=== PATIENT | female | born 1985 | race Hispanic/Latino ===

== ENCOUNTER 2017-10-19 17:39 | Inpatient (IN) | payer OTHER ==
[~2017-10-19] VITALS: Ht 149.9 cm; Wt 77.1 kg
[2017-10-19] MEDS ORDERED: LACTATED RINGERS 1000ML 1,000 ML IV PRN (18:09)
[2017-10-19 18:14] LABS: APPEARANCE,URINE Cloudy (CLEAR); BILIRUBIN,URINE Negative (NEGATIVE); COLOR,URINE Yellow (YELLOW); GLUCOSE, URINE (UA) Negative (NEGATIVE); KETONES,URINE Trace mg/dL (NEGATIVE); LEUKOCYTE ESTERASE ,URINE Moderate (NEGATIVE); NITRATE,URINE Negative (NEGATIVE); OCCULT BLOOD,URINE Moderate (NEGATIVE); PH,URINE 7.5 (5.0-8.0); PROTEIN,URINE Negative (NEGATIVE)
[2017-10-19] MEDS ORDERED: AMPICILLIN 2GM+NS 100ML 100 ML IV SCH (18:15)
[2017-10-19] MEDS: AMPICILLIN 1GM+NS 50ML 50 ML IV SCH ×2 (18:15→22:43)
[2017-10-19 18:17] LABS: HEMATOCRIT 34.6 % (36-48); MEAN CORPUSCULAR HEMOGLOBIN 31.2 pg (27.0-33.0); MEAN CORPUSCULAR HGB CONC 35.1 g/dL (32.0-36.0); NUCLEATED RED BLOOD CELLS 0.1 % (0.0-0.19); PLATELET COUNT (AUTO) 240 K/uL (130-400); RED BLOOD CELL COUNT(AUTO) 3.89 MIL/uL (4.00-5.50); RED CELL DISTRIBUTION WIDTH 14.5 % (11.0-15.5); WHITE BLOOD COUNT (AUTO) 9.2 K/uL (4.8-10.8)
[2017-10-19 18:31] LABS: BACTERIA,URINE Rare /HPF (None Seen)
[2017-10-19] MEDS ORDERED: EPHEDRINE SULFATE 50 MG/ML AMPULE IVP PRN (18:45)
[2017-10-19] MEDS ORDERED: LACTATED RINGERS 500 ML 500 ML IV PRN (18:45)
[2017-10-19] MEDS ORDERED: NALOXONE HCL 0.4 MG/1 ML ML IV PRN (18:45)
[2017-10-19] MEDS ORDERED: ROPIVACAINE 0.2%200ML EPIDURAL 200 ML EP SCH (19:00)
[2017-10-19 19:27] VITALS: BP 120/70
[2017-10-19] MEDS ORDERED: MAG HYDROX/AL HYDROX/SIMETH ES 30 ML SUSP UDCUP PO SCH (22:00)
[2017-10-19] MEDS ORDERED: MAG HYDROX/AL HYDROX/SIMETH ES 30 ML SUSP UDCUP ONE (22:17)
[2017-10-19] MEDS ORDERED: LACTATED RINGERS 1000ML 1,000 ML IV ONE (23:43)
[2017-10-19] MEDS ORDERED: OXYTOCIN 10 USP UNITS/ML ONE (23:44)
[2017-10-20] MEDS ORDERED: LIDOCAINE HCL 1% 20 ML VIAL ONE (00:16)
[2017-10-20] MEDS ORDERED: WITCH HAZEL 1 PAD TP PRN (01:30)
[2017-10-20] MEDS ORDERED: MEASLES/MUMPS/RUBELLA VACCINE, LIVE 0.5 ML/VIAL SQ PRN (01:30)
[2017-10-20] MEDS ORDERED: OXYTOCIN-LR 20 UNITS/1000 ML 1,000 ML IV SCH (01:30)
[2017-10-20] MEDS ORDERED: ACETAMINOPHEN-CODEINE 300/30MG TAB PO PRN (01:30)
[2017-10-20] MEDS ORDERED: LANOLIN 30GM OINTMENT TP PRN (01:30)
[2017-10-20] MEDS ORDERED: BENZOCAINE/LANOLIN/ALOE VERA 60 ML AEROSOL TP PRN (01:30)
[2017-10-20] MEDS ORDERED: ACETAMINOPHEN 325 MG TAB PO PRN (01:30)
[2017-10-20] MEDS: OXYTOCIN-LR 20 UNITS/1000 ML 1,000 ML IV SCH ×2 (01:46→20:04)
[2017-10-20] MEDS ORDERED: LACTATED RINGERS 1000ML 1,000 ML IV ONE (03:28)
[2017-10-20] MEDS ORDERED: OXYTOCIN 10 USP UNITS/ML ONE (03:28)
[2017-10-20] MEDS: IBUPROFEN 800 MG TAB PO PRN ×2 (03:40→17:44)
[2017-10-20] MEDS ORDERED: OXYTOCIN 10 USP UNITS/ML 20 UNIT in LACTATED RINGERS 1000ML 1,000 ML IV SCH (07:00)
[2017-10-20 07:38] VITALS: BP 129/90
[2017-10-20] MEDS: DOCUSATE SODIUM 100 MG CAP PO SCH ×2 (08:15→20:38)
[2017-10-20 11:25] VITALS: BP 113/67
[2017-10-20 15:31] VITALS: BP 115/75
[2017-10-20 19:49] VITALS: BP 107/59
[2017-10-20 23:01] VITALS: BP 116/66
[2017-10-21] MEDS: AMPICILLIN 1GM+NS 50ML 50 ML IV SCH (02:15)
[2017-10-21 03:04] VITALS: BP 131/76
[2017-10-21 06:34] LABS: HEMATOCRIT 29.4 % (36-48); MEAN CORPUSCULAR HEMOGLOBIN 32.5 pg (27.0-33.0); MEAN CORPUSCULAR HGB CONC 35.9 g/dL (32.0-36.0); MEAN CORPUSCULAR VOLUME 90.5 fL (79-99); PLATELET COUNT (AUTO) 207 K/uL (130-400); RED BLOOD CELL COUNT(AUTO) 3.25 MIL/uL (4.00-5.50); RED CELL DISTRIBUTION WIDTH 14.5 % (11.0-15.5)
[2017-10-21 07:37] VITALS: BP 127/84
[2017-10-21] MEDS: DOCUSATE SODIUM 100 MG CAP PO SCH (08:52)
[2017-10-21] MEDS: IBUPROFEN 800 MG TAB PO PRN (08:53)
[2017-10-21 11:15] VITALS: BP 117/69
[2017-10-21] MEDS ORDERED: DOCU-116 PO (12:20)
[2017-10-21] MEDS ORDERED: IBUP-2077 PO (12:21)
[2017-10-22 04:18] LABS: HEPATITIS Bs ANTIGEN SCREEN P Negative (Negative)
== END 2017-10-21 14:20 | disposition home or self-care (01) | DRG 775 ==
LOC: EDH 17:39 → LDH 17:44 → OBSVTOIN 17:44 → WSH 10-20 04:19
PROVIDERS: ADMIT Specialist; ATTEND Specialist
PROC: 10E0XZZ Delivery of Products of Conception, External Approach (ICD-10-PCS; principal; 2017-10-19)
PROC: 3E0R3BZ Introduction of Anesthetic Agent into Spinal Canal, Percutaneous Approach (ICD-10-PCS; 2017-10-19)
PROC: 00HU33Z Insertion of Infusion Device into Spinal Canal, Percutaneous Approach (ICD-10-PCS; 2017-10-19)
PROC: 3E0234Z Introduction of Serum, Toxoid and Vaccine into Muscle, Percutaneous Approach (ICD-10-PCS; 2017-10-19)
DX: O80 Encounter for full-term uncomplicated delivery (principal); Z23 Encounter for immunization; Z37.0 Single live birth; Z3A.38 38 weeks gestation of pregnancy
CPT/HCPCS: 36415; 81001; 85027; 86592; 86701; 86850; 86900; 86901; 87340; 87390; A4314; J0290; J2590; J7120